=== PATIENT | male | born 2000 | race Caucasian/White ===

== ENCOUNTER 2024-04-21 14:12 | Outpatient (AMB) | payer OTHER, SELFPAY ==
--- NOTE | 2024-04-21 14:16 | AM.OFFWIN_ITS ---
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 Patient Tobacco Use Status: Never used Tobacco Allergies No Known Allergies Allergy (Verified 04/21/24 14:20) Do you need a note to return to daycare/school/sports/work: No HPI HPI Comments History of Present Illness Details Patient is a 24-year-old male complaining of 8 months of left-sided chest pain and shoulder pain. States he has tried ibuprofen and muscle relaxers and nothing seems to out. The pain does not seem to get better or worse by any thing specific it just randomly comes and goes. He states he does not have a primary care doctor at this time. He denies any injury. He states he does have full range of motion both of his arms and shoulder. [facility] Social History Patient Tobacco Use Status: Never used Tobacco Review of Systems Const All systems reviewed & are unremarkable except as noted in HPI and below Physical Exam Vital Signs: Last Vital Signs Pulse 86 04/21/24 14:19 BP 110/70 04/21/24 14:19 Pulse Ox 98 04/21/24 14:19 Oxygen Delivery Method Room Air 04/21/24 14:19 BMI result Body Mass Index 26.3 Const General: cooperative, healthy appearing, comfortable and no acute distress Orientation/consciousness: patient oriented x3 Limitations: no limitations HEENT Head: Yes normal to inspection Chest Chest palpation & inspection: normal inspection of the chest, normal palpation of entire chest wall and no tenderness Resp Effort & Inspection: normal respiratory effort and able to speak in complete sentences Neuro General: patient oriented x3 Extrem Left upper extremity: shoulder/upper arm Details: inspection abnormal, axillary nerve sensory function normal and normal ROM; no tenderness, no swelling, no abrasions, no lacerations, no ecchymosis, no crepitus, no foreign bodies, no penetrating wound, no deformity and no unsual warmth Assessment & Plan Assessment & Plan (1) Chronic chest wall pain: Code(s): R07.89 - Other chest pain; G89.29 - Other chronic pain Plan: Recommended Salonpas patches or diclofenac gel. If neither of these work, he should follow up with his PCP/establish care with a PCP. Plan See above Coding Level of Care Code New Pt Level 3 (94118) Diagnoses Chronic chest wall pain R07.89; G89.29
[2024-04-21 14:19] VITALS: BP 110/70; PULSE 86; O2SAT 98; BMI 26.3
== END 2024-04-21 15:24 | disposition home or self-care (01) ==
PROVIDERS: Visit Provider Physician Assistant
DX: R07.89 Other chest pain (principal); G89.29 Other chronic pain
CPT/HCPCS: 99203

== ENCOUNTER 2024-12-29 12:23 | Outpatient (AMB) | payer OTHER, SELFPAY ==
[2024-12-29 12:26] VITALS: BP 112/74; PULSE 70; O2SAT 99; BMI 18.6
--- NOTE | 2024-12-29 12:26 | MHC.PC.OV ---
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 Required: No Accompanied by: Self / Same As Patient Allergies No Known Allergies Allergy (Verified 12/29/24 12:46) Medication List - Last Reconciled 12/29/24 by ANDRZEJ Olivera No Known Home Meds Tobacco use date assessed: 12/29/24 Dental Screening Dental Screen Date: 12/29/24 Did you have a dental visit in the last 12 months?: Yes Did you have a dental problem in the last 6 months where you did not have access to dental care?: No Was dental information given to patient?: Patient has dentist HPI 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 He denies experiencing chest pain, shortness of breath, fevers, chills, and blurred vision. Additionally, he reports no presence of suicidal or homicidal thoughts, nor does he report blood in the stool, constipation, or diarrhea. He states that he is generally feeling well without any health complaints. Health Maintenance - Plan to obtain lab work for routine screening. 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 Review of Systems - Cardiovascular: Denies chest pain, shortness of breath. - Respiratory: Denies shortness of breath. - Constitutional: Denies fevers, chills. - Ophthalmologic: Denies blurred vision. - Gastrointestinal: Denies blood in stool, constipation, diarrhea. - Psychiatric: Denies suicidal and homicidal thoughts. Physical Exam General: Cooperative, healthy appearing, comfortable, no acute distress and well developed Orientation: Patient oriented x3 Limitations: No limitations Head: Normal to inspection Ears: Hearing grossly normal bilaterally Nose: Normal external nose present Face and sinus: Normal facial exam Eyes: Appearance normal, both eyes and all related structures Neck: Normal visual inspection and Yes full ROM Respiratory: Normal respiratory effort and able to speak in complete sentences. Clear to auscultation bilaterally Cardiovascular: Regular rate and rhythm. Normal S1 and S2 GI: Normal to inspection. Soft to palpation and nontender Skin: No rashes or lesions noted Neuro: Patient oriented x3 Extremities: Normal to inspection Results Plan The patient came in for a routine physical examination and reports no significant health concerns. The physical examination was benign, and as part of health maintenance, we will proceed with routine lab work. The patient's current health status appears stable, and no immediate interventions are required. Discussion Notes During our discussion, I explained the importance of regular health maintenance and the rationale for performing routine lab work as part of the physical exam. We discussed that, in the absence of any current symptoms or health issues, this visit primarily serves to confirm the patient's current health status and allow for the early identification of potential health concerns. The patient consented to lab work. Patient Instructions - Expect follow-up for lab results. - Return if new symptoms or health concerns arise. 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 1. Little interest or pleasure in doing things: not at all 2. Feeling down, depressed, or hopeless: not at all 3. Trouble falling or staying asleep, or sleeping too much: not at all 4. Feeling tired or having little energy: not at all 5. Poor appetite or overeating: not at all 6. Feeling bad about yourself - or that you are a failure or have let yourself or your family down: not at all 7. Trouble concentrating on things, such as reading the newspaper or watching television: not at all 8. Moving or speaking so slowly that other people could have noticed. Or the opposite - being so fidgety or restless that you have been moving around a lot more than usual: not at all 9. Thoughts that you would be better off or of hurting yourself in some way: not at all Total score: 0 Depression Screening Interpretation: Negative Depression Screening Done: Yes 19053 - PHQ-9 Billing: Yes Source: Developed by Drs. Darrick Gallo, Annita Soriano, Glen Caldera and colleagues, with an educational rafi from [employer]. Thrive Questionnaire Date Thrive assessed: 12/29/24 I am a: Patient What is your living situation today?: I have a steady place to live Within the past 12 months, did the food you bought not last and you didn't have the money to get more?: Never true Within the past 12 months, did you worry whether your food would run out before you got money to buy more?: Never true Do you have trouble paying for medicines?: No Do you have trouble getting transportation to medical appointments?: No Do you have trouble paying your heating and electricity bill?: No Do you have trouble taking care of your child, family member or friend?: No Do you have trouble with day-to-day activities such as bathing, preparing meals, shopping, managing finances, etc.?: No Are you currently unemployed and looking for a job?: No Are you interested in more education?: No Please select the resources that you would like help with: None Currently or been in a relationship where the following occur: No concerns reported THRIVE Score: 0 AUDIT C Alcohol Use Questionnaire (AUDIT-C) 1. How often do you have a drink containing alcohol?: 2-4 times a month 2. How many drinks containing alcohol do you have on a typical day when you are drinking?: 1 or 2 3. How often do you have six or more drinks on one occasion?: Never Total Score: 2 Score Reviewed/Action Taken: Yes LLOYD-7 AMB Questionnaire LLOYD-7 Date LLOYD - 7 assessed: 12/29/24 Feeling nervous, anxious, or on edge: 1 = Several days Not being able to stop or control worryin = Several days Worrying too much about different things: 1 = Several days Trouble relaxin = Not at all Being so restless that it is hard to sit still: 0 = Not at all Becoming easily annoyed or irritable: 1 = Several days Feeling afraid as if something awful might happen: 1 = Several days Total LLOYD-7 score (0-4 normal; 5-9 mild; 10-14 moderate; 15-21 severe): 5 Source: Developed by Drs. Darrick Gallo, Annita Soriano, Glen Caldera and colleagues, with an educational rafi from [employer]. LLOYD-7 Assessment Billing LLOYD-7 Assessment Tool: LLOYD-7 Assessment 80352 Physical exam (Primary Care) Vital Signs: Last Vital Signs Pulse 70 12/29/24 12:26 BP 112/74 12/29/24 12:26 Pulse Ox 99 12/29/24 12:26 Oxygen Delivery Method Room Air 12/29/24 12:26 BMI result Body Mass Index 18.6 Tobacco/Smoking Status: Tobacco use Status Tobacco use date assessed 12/29/24 12/29/24 12:29 Patient Tobacco Use Status Never used Tobacco 12/29/24 12:29 e-Cigarette/Vaping Use Never Used 12/29/24 12:34 PHQ-9: PHQ-9 Score PHQ-9: Total score 0 12/29/24 12:34 Depression Screening Interpretation: Negative Thrive Assessment: Date of Thrive Assessment Date Thrive assessed 12/29/24 12/29/24 12:29 Currently or been in a relationship where the following occur: No concerns reported Coding Level of Care Code New Pt Prev Care 18-39yr(91883 Diagnoses Physical exam Z00.00 Additional Codes LLOYD-7 Assessment Billing - LLOYD-7 Assessment Tool: LLOYD-7 Assessment 78180 ([id number]) PHQ-9 - 27643 - PHQ-9 Billing: Yes ([id number]) Assessment & Plan Assessment & Plan (1) Physical exam: Code(s): Z00.00 - Encounter for general adult medical examination without abnormal findings Category: Medical Plan . Orders: Orders Complete Blood Count Auto Diff Today Z00.00 - Encounter for general adult medical examination without abnormal findings Lipid Panel Today Z00.00 - Encounter for general adult medical examination without abnormal findings Comprehensive [place]. Panel Fast Today Z00.00 - Encounter for general adult medical examination without abnormal findings TSH reflex Free T4 Today Z00.00 - Encounter for general adult medical examination without abnormal findings UA CC w/rflx Micro + Cult Today Z00.00 - Encounter for general adult medical examination without abnormal findings
== END 2024-12-29 12:56 | disposition home or self-care (01) ==
LOC: HO.HMCC 12:24
PROVIDERS: Visit Provider Nurse Practitioner Family
DX: Z00.00 Encounter for general adult medical examination without abnormal findings (principal)

== ENCOUNTER → 2024-12-29 12:23 | Outpatient (BNVA) | payer OTHER, SELFPAY | PROVIDERS: Visit Provider Nurse Practitioner Family | DX: Z00.00 Encounter for general adult medical examination without abnormal findings (principal) | CPT/HCPCS: 96127 ==